=== PATIENT | female | born 1955 | race Caucasian/White ===

== ENCOUNTER 2016-08-20 15:01 | Outpatient (CLI) | payer OTHER ==
[2012-03-09 13:52] VITALS: O2SAT 94
== END 2016-08-20 15:02 | disposition home or self-care (01) | DRG 554 ==
LOC: CONVCARE 15:01
PROVIDERS: ATTEND Orthopaedic Surgery
DX: M19.012 Primary osteoarthritis, left shoulder (principal)
CPT/HCPCS: 73030

== ENCOUNTER 2018-05-09 15:07 | Emergency (ER) | payer OTHER ==
[2018-05-09 15:16] VITALS: RESP 18; TEMP 97.6
[2018-05-09 16:30] LABS: BASOPHILS % (AUTO) 0 % (0-3); EOSINOPHILS % (AUTO) 1 % (0-9); HEMATOCRIT 34 % (35-47); HEMOGLOBIN 11.4 gm/dl (12.0-15.5); LYMPHOCYTES % (AUTO) 8.4 % (10-50); MEAN CORPUSCULAR HEMOGLOBIN 30.6 pg (27.0-32.0); MEAN CORPUSCULAR HGB CONC 33.3 gm/dl (32.0-36.0); MEAN CORPUSCULAR VOLUME 92 fL (81-99); MONOCYTES % (AUTO) 9.1 % (0-12); NEUTROPHILS % (AUTO) 81.4 % (37-80)
[2018-05-09 16:48] LABS: ALBUMIN 3.8 gm/dl (3.4-5.0); BILIRUBIN,TOTAL 0.5 mg/dl (0.2-1.0); CARBON DIOXIDE 25.4 mEq/L (21-32); CREATININE 0.92 mg/dl (0.60-1.00); POTASSIUM 3.8 mMol/L (3.5-5.1); TOTAL PROTEIN 6.8 gm/dl (6.4-8.2)
[2018-05-09 16:59] LABS: APPEARANCE,URINE Clear; BILIRUBIN,URINE NEGATIVE (NEGATIVE); COLOR,URINE Yellow; GLUCOSE, URINE (UA) NEGATIVE (NEGATIVE); KETONES,URINE NEGATIVE (NEGATIVE); LEUKOCYTE ESTERASE ,URINE TRACE (NEGATIVE); NITRATE,URINE NEGATIVE (NEGATIVE); OCCULT BLOOD,URINE NEGATIVE (NEG-TRACE); PH,URINE 5.5; UROBILINOGEN,URINE 0.2 (0.2-1.0 EU)
[2018-05-09 17:10] LABS: BACTERIA 2+ (< 1+); CRYSTALS NEGATIVE (0-3 AVE/HPF); EPITHELIAL CELLS 0-1 (SQUAMOUS); RBC,URINE 0-1 (0-3AV/HPF); WBC,URINE 0-2 (0-5AV/HPF)
[2018-05-09] MEDS ORDERED: FLEET ENEMA PR PRN (17:57)
[2018-05-09 19:00] VITALS: BP 126/66; PULSE 82; O2SAT 95
== END 2018-05-09 18:47 | disposition home or self-care (01) | DRG 392 ==
LOC: ED 15:07
DX: K59.00 Constipation, unspecified (principal); S30.0XXA Contusion of lower back and pelvis, initial encounter; W19.XXXA Unspecified fall, initial encounter
CPT/HCPCS: 36415; 71046; 74019; 80053; 81001; 85025; 87088; 99283

== ENCOUNTER 2018-10-07 08:20 | Day surgery (SDC) | payer MEDICARE, OTHER ==
[~2018-10-07 08:20] MED LIST: CEFAZOLIN SODIUM 1 GM PDS ONE; DEXAMETHASONE 20 MG/5 ML (4 MG/ML SOL) ONE; FENTANYL 100MCG/2ML SOL ONE; FENTANYL 250 MCG/ 5ML SOL ONE; MIDAZOLAM 2 MG/2 ML SOL ONE; MORPHINE SULFATE 0.5 MG/ML SOL ONE; ONDANSETRON HCL 4 MG/2 ML SOL ONE; PROPOFOL 10 MG/ML 200 MG/20 ML EMU IV ONE; PROPOFOL 500 MG/50 ML EMU IV ONE
[2018-10-07] MEDS: BUPIVACAINE/EPI 0.5% 10 ML SOL INFIL ONE ×2 (09:28→09:57)
[2018-10-07 10:58] VITALS: O2SAT 92
[2018-10-07 11:21] VITALS: BP 118/75; PULSE 67; RESP 16; TEMP 96.7
[2018-10-07] MEDS ORDERED: CEFAZOLIN SODIUM 1 GM PDS ONE (11:39)
== END 2018-10-07 12:00 | disposition home or self-care (01) | DRG 395 ==
LOC: SURG 08:20
PROVIDERS: ATTEND Surgery
DX: K42.9 Umbilical hernia without obstruction or gangrene (principal)
CPT/HCPCS: J0690; J1100; J2250; J2274; J2405; J3010; A6402; C1781; J2704